=== PATIENT | female | born 1950 | race Caucasian/White ===

== ENCOUNTER 2024-01-24 12:17 | Day surgery (SDC) | payer MEDICARE, OTHER, SELFPAY ==
--- NOTE | 2024-01-24 | PATH_ITS ---
[facility] Accession Number: [id number] No. of containers..01 Tissue . 01 Material submitted: . colon - DESCENDING COLON POLYP . 01 Diagnosis: DESCENDING COLON POLYP, BIOPSY: Traditional serrated adenoma. No high-grade dysplasia or malignancy identified. MRV 01/29/2024 1706 Local . 01 Electronically signed: . Safia Wilcox MD, Pathologist NPI- [id number] . 01 Gross description: . DESCENDING COLON POLYP: Received in formalin are multiple fragment of quinones soft tissue measuring 0.6 x 0.5 x 0.8 cm in aggregate. Specimen is sectioned and submitted in its entirety in 2 cassettes. /ESTEFANY 01/25/20242004 Local . 01 Pathologist provided ICD-10: D12.4 . 01 CPT . 382996 Specimen Comment: A courtesy copy of this report has been sent to [phone] Performed at: [address] [facility] [address], [place], [place] [id number] MD Neal Bay MD Phone: [phone]
[2024-01-24 12:48] VITALS: BP 124/79; PULSE 75; RESP 14; TEMP 36.8; O2SAT 94
--- NOTE | 2024-01-24 13:23 | PM.HP.1 ---
History of Present Illness History of Present Illness Date Patient Seen: 01/24/24 Time Patient Seen: 13:23 Chief complaint: SDC Narrative: Lissa is a 73-year-old woman who is here for a colonoscopy. She has never had one before. No family history of colon cancer PFS Surgical History (Updated 01/24/24 @ 12:48 by Batsheva Blair RN) History of hysterectomy Social History Smoking Status: Current every day smoker alcohol intake: never Meds Home Medications and Allergies Home Medications Medication Instructions Recorded Confirmed Type sodium,potassium,mag sulfates 17.5 See Rx Instructions PO .COMPLEX 12/11/23 Rx gram-3.13 gram-1.6 gram oral soln #354 mL (Suprep Bowel Prep Kit) Exam Vital Signs (past 8 hours): - 01/24/24 12:48 01/24/24 13:20 Temperature 98.2 F 97.1 F L Pulse Rate 75 84 Respiratory Rate 14 18 Blood Pressure 124/79 90/57 L Pulse Oximetry 94 97 Oxygen Delivery Method Room Air Room Air Oxygen Delivery Method Room Air Const General: healthy appearing Resp Effort & Inspection: normal respiratory effort Assessment & Plan Assessment and plan (1) Colon cancer screening: Status: Acute Plan Colonoscopy Time-Based Coding :: [TOTAL MINUTES] spent with patient and on the chart (including review of chart, obtaining history, exam, reviewing outside data, placing orders, documenting exam and treatment plan, and counseling patient) on [DATE].
[2024-01-24 14:00] VITALS: BP 89/52; PULSE 63; RESP 14; TEMP 36.2; O2SAT 95
[2024-01-24 14:05] VITALS: BP 87/52; PULSE 60; RESP 18; O2SAT 98
--- NOTE | 2024-01-24 14:05 | PM.OP.COLON ---
Operative Date/Time/Diagnoses Date of procedure: 01/24/24 Time of procedure: 14:05 Pre-op diagnosis: Colon cancer screening Post-op diagnosis: same Procedure & Clinicians Study performed: Colonoscopy Same procedure as scheduled: Yes Surgeon: Latrell Berry Procedure Notes Procedure in detail: Surgeon: Latrell Berry MD Anesthesia: Shea Teixeira [employer]GAL [employer] Procedure: The patient was brought to the endoscopy suite, placed in left lateral decubitus position. The patient was connected to monitoring devices. A time-out was performed. Sedation was administered. Once the patient was adequately sedated, a digital rectal exam was performed and was normal. The scope was then inserted and advanced to the cecum where the appendiceal orifice was identified and photographed. The prep in the proximal colon was unable to be completely suctioned out. The scope was then slowly withdrawn over greater than 6 minutes. The mucosa was thoroughly inspected. There was a 1.5 cm flat polyp in the proximal descending colon. The polyp was raised with a saline lift and then removed piecemeal with multiple passes of the hot snare. We then injected tattoo ink around the polypectomy scar The scope was retroflexed in the rectum. No other abnormalities were found. The scope was straightened and removed. The patient was awakened and brought to recovery. Scope withdrawal time: 19 minutes Sedation time: 28 minutes EBL: 3 mL Findings: Inadequate prep in the proximal colon, 1.5 cm flat polyp in the proximal descending colon Post-procedure Disposition: PACU
[2024-01-24 14:10] VITALS: BP 92/56; PULSE 57; RESP 18; O2SAT 95
[2024-01-24 14:15] VITALS: BP 98/61; PULSE 57; RESP 12; O2SAT 98
[2024-01-24 14:21] VITALS: BP 119/80; PULSE 62; RESP 12; TEMP 36.4; O2SAT 98
== END 2024-01-24 14:38 | disposition home or self-care (01) ==
PROVIDERS: PCP Nurse Practitioner; Referring Provider Nurse Practitioner; Visit Provider Surgery
PROC: 0DJD8ZZ Inspection of Lower Intestinal Tract, Via Natural or Artificial Opening Endoscopic (ICD-10-PCS; CPT 45378; principal; 2024-01-24 13:45)
DX: Z12.11 Encounter for screening for malignant neoplasm of colon (principal); D12.4 Benign neoplasm of descending colon
CPT/HCPCS: 45381; 45385; J2704